=== PATIENT | female | born 1965 | race Caucasian/White ===

== ENCOUNTER 2016-08-21 08:33 | Day surgery (SDC) | payer OTHER ==
[~2016-08-21] VITALS: Ht 165.1 cm; Wt 78.5 kg
[~2016-08-21 08:33] MED LIST: ALBU8.5H4 IH; ATRINH INH; FEXO180T85 PO; FLUT12AE4 IH; IMI100 PO; LISI10TA2 PO; MOME17SP NS; OMEP20TA24 PO; Sodium Chloride LOK Flush 10 mL Syringe IV PRN; TOPI-59 PO; fentaNYL-PF 50 mCg/mL 2 mL Inj IVPUSH PRN
[2016-08-21 09:10] VITALS: BP 129/82; PULSE 71; RESP 16; O2SAT 95
[2016-08-21] MEDS: 0.9% Sodium Chloride 1,000 ML IV SCH ×3 (09:34→10:27)
--- NOTE | 2016-08-21 10:35 | PCM.ENDEGD ---
EGD Date of Service: Aug 21, 2016 Physician Seth Chowdhury MD Pre Procedure Diagnosis: Reflux Post Procedure Dx & Findings: Fundic polyp and gastritis Procedure Esophagogastroduodenoscopy PROCEDURE IN DETAIL: After proper sedation, Olympus video endoscope was inserted into patient's mouth and esophagus was successfully intubated. Scope introduced esophagus. Esophagus showed normal shiny whitish mucosa consistent with squamous cell component. Z line was intact at 40 cm from the incisors. Scope further advanced to the stomach. Stomach showed normal shiny mucosa with normal appearing rugae folds without any ulcer mass erosion. However in the antrum, there were a few bright age spots of irritation which was biopsied. In the fundus, there are few 3 mm or less fundic polyps. Sampling biopsies obtained. Cardia fundus body antrum pylorus were all visualized. Retroflexion was done. Stomach was easily inflated and deflatable using air. Scope further events to the distal duodenum. Duodenum revealed normal villous structures with normal appearing folds without any mass ulcer erosion. Impression Fundic polyp Gastritis Dysphagia Recommendation Barium esophagram Esophageal manometry Continue PPI Presedation Assessment Risks and Benefits Informed consent was obtained from the patient after all risks and benefits including but not limited to drug reaction, infection, pain, bleeding, perforation, as well as alternatives were discussed. Patient monitoring Continuous pulse oximetry, cardiac monitoring, blood pressure monitoring, IV access, and oxygen at 2L per nasal cannula. Periprocedural Fentanyl: Fentanyl 100mcg Incrementally Midazolam: Midazolam 5mg Incrementally Complications There were no periprocedural complications identified. Post Procedure Plan Post Procedure Recommendations 1. Restrict activities today. 2. Resume normal activities in the morning. 3. Resume medications. 4. GERD behavioral modification: - Avoid fatty, acidic, spicy, large meals - Do not lie down after meals - Do not eat or drink anything for at least 2 1/2 hours before going to bed at night - Discontinue tobacco and alcohol - Decrease or avoid caffeine - Avoid chocolate and mints - Decrease weight - Avoid aspirin and non steroidal anti-inflammatory agents (NSAID) such as Aleve, Advil, Mobic, Naproxen, Ibuprofen, etc 5. Add proton pump inhibitor. Take 30 minutes before 1st meal of the day. 6. Patient informed of normal post procedure side effects as bloating, drowsiness, blood streaking in the stool 7. If gastric biopsy reveal H.pylori, continue with appropriate treatment 8. If small bowel biopsy reveals celiac, continue with appropriate treatment 9. Please don't hesitate to call me with any questions Seth Chowdhury MD Aug 21, 2016 10:35
--- NOTE | 2016-08-21 10:36 | PCM.ENDCOL ---
Colonoscopy Date of Service: Aug 21, 2016 Physician Seth Chowdhury MD Pre Procedure Diagnosis: Screening and change in bowel patterns. Stools are becoming little softer. Post Procedure Dx & Findings: Polyp hemorrhoids Procedure Colonoscopy PROCEDURE IN DETAIL: Prep adequate Withdrawal time 14 minutes After unremarkable rectal examination the Olympus video colonoscope was inserted patient's anal canal and was advanced to cecum. Landmarks were identified including the ileocecal valve and appendiceal orifice. Scope was withdrawn systematically. Visualized colonic mucosa showed healthy shiny mucosa with normal healthy-appearing vasculature. In the rectum, there was a 3 mm polyp which was removed completely using cold snare. In the rectum retroflexion was done which showed hemorrhoids. Anal canal was inspected carefully on the way out and hemorrhoids noted. Impression Polyp 1 status post complete removal Family history of colon cancer Hemorrhoids Recommendation Repeat colonoscopy in 5 years Presedation Assessment Risks and Benefits Informed consent was obtained from the patient after all risks and benefits including but not limited to drug reaction, infection, pain, bleeding, perforation, as well as alternatives were discussed. Patient monitoring Continuous pulse oximetry, cardiac monitoring, blood pressure monitoring, IV access, and oxygen at 2L per nasal cannula. Complications There were no periprocedural complications identified. Post Procedure Plan Post Procedure Recommendations 1. Restrict activities today. 2. Resume normal activities in the morning. 3. Resume medications. 4. Patient informed of normal post procedure side effects as bloating, drowsiness, blood streaking in the stool. 5. average risk CRCS. If colon polyps come back as: -Hyperplastic- can repeat colonoscopy in 10 years -Tubular adenoma- repeat colonoscopy in 5 years -Tubulovillous/villous adenoma- repeat colonoscopy in 3 years -If any dysplasia- return to clinic as soon as possible 6. Please don't hesitate to call me with any questions. Seth Chowdhury MD Aug 21, 2016 10:36
[2016-08-21 10:51] VITALS: BP 102/61; PULSE 68; RESP 14; O2SAT 100
[2016-08-21 10:58] VITALS: BP 102/67; PULSE 59; RESP 14; O2SAT 100
--- NOTE | 2016-08-22 13:40 | PATH ---
SURGICAL PATHOLOGY Attending Physician:Seth Chowdhury M.D. CASE STATUS: Signed Out PATIENT NAME: MERCEDES KEARNEY PID: [id number] : 1965 DATE COLLECTED:08/21/2016 16:33 SPECIMEN: 1: Stomach, Polyp, Biopsy 2: Stomach, Antrum, Biopsy 3: Rectum, Biopsy CLINICAL HISTORY: DYSPHAGIA, CHANGE IN BOWEL HABITS, ANTRAL EROSIONS,COLON POLYP 1). Gastric Polyps 2). Antral Bx's 3). Rectal polyp FINAL DIAGNOSIS: 1.STOMACH POLYP: FUNDIC GLAND POLYP, NEGATIVE FOR ATYPIA. Negative for evidence of Helicobacter. Negative for intestinal metaplasia. Negative for atypia and malignancy. 2.BIOPSIES, GASTRIC ANTRUM: FOCI OF CHRONIC GASTRITIS INVOLVING ANTRAL MUCOSA. Negative for evidence of Helicobacter. Negative for intestinal metaplasia. Negative for dysplasia and malignancy. 3.RECTAL POLYP: TUBULAR ADENOMA. ICD10 CODE D12.8 GROSS DESCRIPTION: The specimen is received in three formalin filled containers labeled with the patient's name. 1). The specimen is sublabeled "gastric polyps" and consists of a 0.2 x 0.2 x 0.2 CM portion of tissue and mucoid material which is entirely submitted in cassette 1A. 2). The specimen is sublabeled "antral" and consists of a 0.3 x 0.3 x 0.2 CM portion of tissue which is entirely submitted in cassette 2A. 3). The specimen is sublabeled "rectal polyp" and consists of a 0.5 x 0.4 x 0.3 CM portion of tissue which is entirely submitted in cassette 3A. 08/21/2016 DAC MICRO DESCRIPTION: See diagnosis. ICD-9 CODES: CPT CODES: 1: 35037 2: 69188 3: 61627 Electronically Signed Out Tray Enamorado MD [facility] [address], [place] [address] Technical component performed at [facility], [address], [place], [address]
== END 2016-08-21 23:59 | disposition home or self-care (01) ==
LOC: END 08:33
PROVIDERS: ATTEND Internal Medicine
DX: Z12.11 Encounter for screening for malignant neoplasm of colon (principal); D12.8 Benign neoplasm of rectum; K64.8 Other hemorrhoids; Z80.0 Family history of malignant neoplasm of digestive organs; Z86.010 Personal history of colon polyps; K29.50 Unspecified chronic gastritis without bleeding; K31.7 Polyp of stomach and duodenum; R13.10 Dysphagia, unspecified; K21.9 Gastro-esophageal reflux disease without esophagitis; I10 Essential (primary) hypertension; Z79.51 Long term (current) use of inhaled steroids
CPT/HCPCS: 43239; 45385; 99153; G0500; J7030

== ENCOUNTER → 2016-12-30 | Day surgery (SDC) | payer OTHER ==
[~2016-12-30] MED LIST changes: +Lidocaine Topical 2% 30 mL Jelly ONE; -Sodium Chloride LOK Flush 10 mL Syringe IV PRN; -fentaNYL-PF 50 mCg/mL 2 mL Inj IVPUSH PRN
== END | disposition home or self-care (01) ==
LOC: END 00:21
PROVIDERS: ATTEND Internal Medicine
DX: R13.10 Dysphagia, unspecified (principal)